=== PATIENT | male | born 1940 | race Caucasian/White ===

== ENCOUNTER → 2017-03-29 | Day surgery (SDC) | payer OTHER, BC ==
[2017-03-16 13:11] VITALS: Ht 172.7 cm; Wt 77.3 kg
[~2017-03-29] VITALS: Ht 172.7 cm; Wt 77.3 kg
[~2017-03-29] MED LIST: FLUO20CA35 PO; GARL10007 PO; LIDOCAINE HCL 2% 2 ML VIAL (20MG/ML) ONE; LSN/10125 PO; MELO15TA4 PO; PROPOFOL IV EMULSION 10 MG/ML 20 ML VIAL IV ONE; SIMV40TA2 PO
--- NOTE | 2017-03-29 14:17 | Endo History and Physical ---
History & Physical Date of Service: Mar 29, 2017. Chief Complaint: weight loss,history of small bowel obstruction Referring Physician: Melanie RYDER History of Present Illness For colonoscopy Past Surgical History Hx Cardiac Surgery: No Hx Internal Defibrillator: No Hx Pacemaker: No Hx Abdominal Surgery: Yes (NICOLE, INGUINAL HERNIA, APPY, LAP PROCEDURE FOR BOWEL BLOCKAGE) Hx of Implantable Prosthesis: No Hx Post-Op Nausea and Vomiting: No Hx Cancer Surgery: Yes (ROBOTIC TOTAL PROSTATECTOMY, NOSE EXCISION X 2) Hx Thoracic Surgery: No Hx Orthopedic: Yes (CERVICAL FUSION/REVISION, LUMBAR FUSION, RT TKA, LEFT CTR) Hx Urinary Tract Surgery: No Family History None Social History Smoking Status: Never Smoker Hx Substance Use: No Hx Alcohol Use: Yes (VERY RARELY) Allergies Coded Allergies: Morphine (Verified Allergy, Unknown, HALLUCINATIONS, 03/16/17) Current Medications Reported Home Medications Medications Dose Route/Sig Max Daily Dose Days Date Category Garlic 1,000 Mg Cap 2 Cap PO QAM 03/16/17 Reported Zocor (Simvastatin) 40 Mg Tab 40 Mg PO QPM 03/16/17 Reported Lisinopril/Hctz 10/12.5 Mg (HCTZ/Lisinopril) 1 Ea Tab 1 Tab PO QAM 03/16/17 Reported Mobic (Meloxicam) 15 Mg Tab 15 Mg PO QAM 03/16/17 Reported Prozac (Fluoxetine HCl) 20 Mg Cap 20 Mg PO QAM 03/16/17 Reported Vital Signs Weight (Kilograms): 77.27 Height (Feet): 5 Height (Inches): 8 Date Time Temp Pulse Resp B/P (MAP) Pulse Ox O2 Delivery O2 Flow Rate FiO2 03/29/17 13:48 36.7 76 20 161/76 (104) 98 Room Air Physical Exam General Appearance: WD/WN Respiratory/Chest: Respiratory effort: no dyspnea Cardiovascular: Heart Auscultation: RRR Abdomen: Inspection & Palpation: soft Assessment and Plan wt loss for colonoscopy
--- NOTE | 2017-03-29 14:46 | Discharge Instructions ---
Endoscopy Patient Instructions Date / Procedure(s) Performed Mar 29, 2017. Colonoscopy Allergy Information Coded Allergies: Morphine (Verified Allergy, Unknown, HALLUCINATIONS, 03/16/17) Discharge Date / Findings Mar 29, 2017. Diverticulosis Medication Instructions Restart Stopped Medication(s): resume meds Reported Home Medications Medications Dose Route/Sig Max Daily Dose Days Date Category Garlic 1,000 Mg Cap 2 Cap PO QAM 03/16/17 Reported Zocor (Simvastatin) 40 Mg Tab 40 Mg PO QPM 03/16/17 Reported Lisinopril/Hctz 10/12.5 Mg (HCTZ/Lisinopril) 1 Ea Tab 1 Tab PO QAM 03/16/17 Reported Mobic (Meloxicam) 15 Mg Tab 15 Mg PO QAM 03/16/17 Reported Prozac (Fluoxetine HCl) 20 Mg Cap 20 Mg PO QAM 03/16/17 Reported Provider Instructions Activity Restrictions - No exercising or heavy lifting for 24 hours. - Do not drink alcohol the day of the procedure. - Do not drive a car or operate machinery until the day after the procedure. - Do not make any important decisions or sign important papers in 24 hours after the procedure. Following Day: - Return to full activity which may include returning to work/school. Diet Start your diet with liquids and light foods (jello, soup, juice, toast). Then eat your usual diet if not nauseated. Treatment For Common After Affects For mild abdominal pain, bloating, or excessive gas: - Rest - Eat lightly - Lie on right side Follow-Up Information Follow-up with Melanie RYDER as scheduled Anesthesia Information What You Should Know You have had a procedure that required some medicine to reduce anxiety and discomfort. This treatment is called moderate sedation. After receiving the treatment, you may be sleepy, but you will be able to breathe on your own. The effects of the treatment may last for several hours. Follow these instructions along with Activity/Diet recommendations noted above: * Do NOT do anything where dizziness or clumsiness would be dangerous. * Rest quietly at home today, then you can be up and about tomorrow. * Have a responsible person stay with you the rest of today. * You may have had an I.V. today. If so, you may take the dressing off later today. Recommendations Call your doctor if: * Trouble breathing * Continuous vomiting for more than 24 hours * Temperature above 101 degrees * Severe abdominal pain or bloating * Pain not relieved by pain medicine ordered * There is increased drainage or redness from any incision * A large amount of rectal bleeding greater than 2-3 tablespoons. (If you had a polyp/s removed or have hemorrhoids, a small amount of blood - from the rectum is to be expected.) * You have any unanswered questions or concerns. IN THE EVENT OF A SERIOUS EMERGENCY, GO TO THE NEAREST EMERGENCY ROOM Your discharge instructions were prepared by provider Valentino Segundo. Patient Instructions Signature Page Gus Rodriguez Patient (or Guardian) Signature/Date: I have read and understand the instructions given to me by my caregivers. Caregiver/RN/Doctor Signature/Date: The above-named patient and/or guardian has received patient instructions on this date. + Original Patient Signature Page (only) stays with chart. Please make copy for patient.
--- NOTE | 2017-03-29 14:46 | Anesthesiology Progress Note ---
Anesthesia Post Op Note Date & Time Mar 29, 2017 at 14:46 Vital Signs Pain Intensity: 0 Vital Signs Past 12 Hours Date Time Temp Pulse Resp B/P (MAP) Pulse Ox O2 Delivery O2 Flow Rate FiO2 03/29/17 13:48 36.7 76 20 161/76 (104) 98 Room Air Notes Mental Status: alert / awake / arousable, participated in evaluation Pt Amnestic to Procedure: Yes Nausea / Vomiting: adequately controlled Pain: adequately controlled Airway Patency, RR, SpO2: stable & adequate BP & HR: stable & adequate Hydration State: stable & adequate Anesthetic Complications: no major complications apparent
[2017-03-29 15:19] VITALS: BP 145/85; PULSE 62; O2SAT 96
--- NOTE | 2017-03-30 00:14 | GI REPORT ---
Procedure Date: 03/29/2017 2:19 PM Procedure: Colonoscopy Indications: Weight loss, Hx SBO Medicines: Propofol total dose 150 mg IV, Lidocaine 40 mg IV Complications: No immediate complications. Estimated Blood Loss: Estimated blood loss: none. Procedure: Pre-Anesthesia Assessment: - Prior to the procedure, a History and Physical was performed, and patient medications, allergies and sensitivities were reviewed. The patient's tolerance of previous anesthesia was reviewed. - The risks and benefits of the procedure and the sedation options and risks were discussed with the patient. All questions were answered and informed consent was obtained. After I obtained informed consent, the scope was passed under direct vision. Throughout the procedure, the patient's blood pressure, pulse, and oxygen saturations were monitored continuously. The scope was introduced through the anus and advanced to the terminal ileum. The colonoscopy was performed without difficulty. The patient tolerated the procedure well. The quality of the bowel preparation was good. Findings: The terminal ileum appeared normal. Biopsies were taken with a cold forceps for histology. Estimated blood loss was minimal. Many diverticula were found in the sigmoid colon and in the descending colon. The digital rectal exam findings include prostate nodules. Impression: - The examined portion of the ileum was normal. Biopsied. - Diverticulosis in the sigmoid colon and in the descending colon. - Prostate nodules found on digital rectal exam. Recommendation: - Discharge patient to home (ambulatory). - Continue present medications. - Await pathology results. - Return to primary care physician ROLANDN. Valentino Segundo M.D. Valentino Segundo MD 03/29/2017 2:50:44 PM This report has been signed electronically. Note Initiated On: 03/29/2017 2:19 PM I attest to the content of the Intraoperative Record and orders documented therein, exceptions below
== END | disposition home or self-care (01) ==
LOC: C.GI 13:24
PROVIDERS: ATTEND Internal Medicine Gastroenterology
DX: R63.4 Abnormal weight loss (principal); K57.30 Diverticulosis of large intestine without perforation or abscess without bleeding; Z90.49 Acquired absence of other specified parts of digestive tract; Z90.79 Acquired absence of other genital organ(s); Z98.1 Arthrodesis status; Z96.651 Presence of right artificial knee joint